=== PATIENT | male | born 1985 | race Caucasian/White ===

== ENCOUNTER 2021-02-12 23:18 | Emergency (ER) | payer SELFPAY ==
[~2021-02-12] VITALS: Ht 185.4 cm; Wt 68.1 kg
[2021-02-12 23:32] VITALS: BP 156/97
[2021-02-13] MEDS ORDERED: MUPI15CR8 TP (00:21)
[2021-02-13] MEDS ORDERED: CEPH500T PO (00:21)
--- NOTE | 2021-02-13 00:27 | PHYS DOC ---
Past History Past Surgical History: No Surgical History Alcohol Use: Occasionally General Adult EDM: Chief Complaint: LOWER EXT PAIN HPI: HPI: 35-year-old male presents with right foot pain and swelling. The patient has had some kind of skin condition on his bilateral feet for many years. He presents today because he is concerned about infection. The right foot has had split skin with yellow crusting and a lot of swelling. He had something similar to this on the left foot that ended up requiring IV antibiotics in the past. He does not want to get that bad again. He has been putting all different kinds of powders on his feet. He has not been diagnosed by floral clerk. Denies fever or chills. Review of Systems: Review of Systems: Constitutional: Denies fever or chills Eyes: Denies change in visual acuity HENT: Denies nasal congestion or sore throat Respiratory: Denies cough or shortness of breath Cardiovascular: Denies chest pain or edema GI: Denies abdominal pain, nausea, vomiting, bloody stools or diarrhea : Denies dysuria Musculoskeletal: Denies back pain or joint pain Integument: Rash Neurologic: Denies headache, focal weakness or sensory changes Endocrine: Denies polyuria or polydipsia Lymphatic: Denies swollen glands Psychiatric: Denies depression or anxiety Current Medications: Current Meds: Current Medications Medications (Trade) Dose Ordered Sig/Julia Start Time Stop Time Status Last Admin Dose Admin Cephalexin HCl (Keflex) 500 mg 1X ONCE 02/13/21 00:30 02/13/21 00:31 02/13/21 00:05 500 MG Allergies: Allergies: Allergies Coded Allergies Type Severity Reaction Last Updated Verified No Known Drug Allergies 02/12/21 No Physical Exam: PE: Constitutional: Well developed, well nourished, no acute distress, non-toxic appearance. [] HENT: Normocephalic, atraumatic, bilateral external ears normal, oropharynx moist, no oral exudates, nose normal. [] Eyes: PERRLA, EOMI, conjunctiva normal, no discharge. [] Neck: Normal range of motion, no tenderness, supple, no stridor. [] Cardiovascular: Heart rate regular rhythm, no murmur [] Lungs & Thorax: Bilateral breath sounds clear to auscultation [] Abdomen: Bowel sounds normal, soft, no tenderness, no masses, no pulsatile masses. [] Skin: Erythematous, warm right dorsal foot with yellow crusting. Dried topical powder over the area. [] Back: No tenderness, no CVA tenderness. [] Extremities: No tenderness, no cyanosis, no clubbing, ROM intact, no edema. [] Neurologic: Alert and oriented X 3, normal motor function, normal sensory function, no focal deficits noted. [] Psychologic: Affect normal, judgement normal, mood normal. [] Current Patient Data: Vital Signs: Vital Signs Date Time Temp Pulse Resp B/P (MAP) Pulse Ox O2 Delivery O2 Flow Rate FiO2 02/12/21 23:32 98.6 80 18 156/97 (116) 99 Room Air EKG: EKG: [] Radiology/Procedures: Radiology/Procedures: [] Heart Score: C/O Chest Pain: N/A Risk Factors: Risk Factors: DM, Current or recent (<one month) smoker, HTN, HLP, family history of CAD, obesity. Risk Scores: Score 0 - 3: 2.5% MACE over next 6 weeks - Discharge Home Score 4 - 6: 20.3% MACE over next 6 weeks - Admit for Clinical Observation Score 7 - 10: 72.7% MACE over next 6 weeks - Early Invasive Strategies Course & Med Decision Making: Course & Med Decision Making Pertinent Labs and Imaging studies reviewed. (See chart for details) The patient's foot appears to be consistent with impetigo strep skin infection. I will treat him with Keflex and give the first dose in the emergency room. I will also discharge him with a prescription for Keflex and mupirocin. I have strongly advised that he follow-up with dermatology. I provided phone number for a local office. He is stable for discharge at this time. [] Dragon Disclaimer: Yony Disclaimer: This electronic medical record was generated, in whole or in part, using a voice recognition dictation system. Departure Departure: Impression: Primary Impression: Cellulitis of right foot Disposition: HOME / SELF CARE / HOMELESS Condition: STABLE Referrals: PCP,ANDREEA (PCP) Patient Instructions: Cellulitis, [id number] Additional Instructions: Please call [facility] [place] dermatology for an appointment to further manage your skin problem. The phone number is: [phone]. Scripts Cephalexin (CEPHALEXIN) 500 Mg Tablet 1 TAB PO TID for cellulitis for 10 Days, #30 TAB Prov: JARQUIN,ROBIN DO 02/13/21 Mupirocin Calcium (MUPIROCIN) 15 Gm Cream..g. 1 BELINDA TP TID for cellulitis for 10 Days, #30 GM 0 Refills Prov: ROBIN JARQUIN DO 02/13/21 ROBIN JARQUIN DO Feb 13, 2021 00:27
[2021-02-13] MEDS ORDERED: CEPHALEXIN 250 MG CAPSULE PO ONE (00:30)
== END 2021-02-13 00:33 | disposition home or self-care (01) ==
LOC: ER 23:18
DX: L03.115 Cellulitis of right lower limb (principal)
CPT/HCPCS: 99283